=== PATIENT | male | born 1950 | race Caucasian/White ===

== ENCOUNTER 2017-03-23 06:22 | Inpatient (IN) | payer OTHER ==
[~2017-03-23] VITALS: Ht 185.4 cm; Wt 109.2 kg
[~2017-03-23 06:22] MED LIST: AMOX TR-K CLV1 EAC4 PO; CEFTIN500 MG PO; COUMADIN5 MG PO; GABAPENTIN300 MG PO; GLUCOPHAGE1000 MG PO; LIPITOR10 MG PO; LOVENOX100 MG/1 M SC; METOPROLOL SUC100 MG PO; MICARDIS HCT1 TABLE2 PO; TRAMADOL HCL50 MG PO; TRICOR145 MG PO; VALACYCLOVIR500 MG PO; WARFARIN SODIUM5 MG PO
[2017-03-23 06:55] LABS: POINT-OF-CARE METER ID UU13113702
[2017-03-23 07:40] LABS: BASOPHIL COUNT 0.1 K/uL (0-0.1); EOSINOPHIL (%) 0.8 % (0-5); EOSINOPHIL COUNT 0.1 K/uL (0-0.3); HEMATOCRIT 41.6 % (38.0-50.0); IMMATURE GRANULOCYTE (%) 1.1 % (0.0-0.7); IMMATURE GRANULOCYTE COUNT 0.2 K/uL; INSTRUMENT ABS NEUTROPHIL CT 10.4 K/uL; LYMPHOCYTE COUNT 1.7 K/uL (1.0-2.8); MCH 28.5 PG (29.0-34.0); MCHC 34.4 G/DL (30.0-36.0); MCV 82.9 FL (86-99); MEAN PLAT.VOLUME 10.3 uM^3 (9.0-12.4); MONOCYTE (%) 6.9 % (3-12); MONOCYTE COUNT 0.9 K/uL (0-0.8); NEUTROPHIL (%) 78.3 % (45-76); NEUTROPHIL COUNT 10.4 K/uL (1.8-6.4); PLATELET COUNT 257 K/uL (156-360); RED BLOOD COUNT 5.02 M/uL (4.00-5.50); WHITE BLOOD COUNT 13.3 K/uL (4.1-10.2)
[2017-03-23 08:03] LABS: INTER. NORMALIZED RATIO 3.9; PROTHROMBIN TIME 41.1 (9.2-11.2)
[2017-03-23 08:54] LABS: CHLORIDE 110 mEq/L (99-109); POTASSIUM 3.9 mEq/L (3.7-5.4); SODIUM 139 mEq/L (136-147)
[2017-03-23 08:56] LABS: GLUCOSE 115 mg/dL (70-99)
[2017-03-23 08:57] LABS: ANION GAP 10 MEQ/L (2-14)
[2017-03-23 09:00] LABS: GFR ESTIMATE (CALCULATED) > 59 mL/min/
[2017-03-23 09:01] LABS: UREA NITROGEN (BUN) 13 mg/dL (9-23)
[2017-03-23 11:57] LABS: ADD MIUA? NO; BILIRUBIN NEGATIVE; BLOOD NEGATIVE; COLOR STRAW ((YELLOW)); GLUCOSE (STRIP) NEGATIVE; KETONES NEGATIVE; LEUKOCYTES NEGATIVE; NITRITE NEGATIVE; PROTEIN (STRIP) NEGATIVE; SPECIFIC GRAVITY 1.026 (1.000-1.030); UCUL ADDED? NO; UROBILINOGEN 0.2 MG/DL (0.2-1.0)
[2017-03-23] MEDS ORDERED: DEXILANT60 MG PO (12:37)
[2017-03-23] MEDS ORDERED: COZAAR100 MG PO (12:37)
[2017-03-23] MEDS ORDERED: JENTADUETO 2.51 EAC2 PO (12:38)
[2017-03-23 13:30] LABS: TROP-I INTERPRETATION NEGATIVE; TROPONIN-I < 0.01 ng/mL (0.0-0.30)
[2017-03-23 17:39] VITALS: BP 161/85
[2017-03-23 19:27] LABS: TROP-I INTERPRETATION NEGATIVE; TROPONIN-I < 0.01 ng/mL (0.0-0.30)
[2017-03-23 20:00] VITALS: BP 173/93
[2017-03-23 23:43] VITALS: BP 118/63
[2017-03-24 01:11] LABS: TROP-I INTERPRETATION NEGATIVE; TROPONIN-I < 0.01 ng/mL (0.0-0.30)
[2017-03-24 07:21] LABS: HEMATOCRIT 37.4 % (38.0-50.0); MCH 28.7 PG (29.0-34.0); MCHC 34.2 G/DL (30.0-36.0); MCV 83.9 FL (86-99); MEAN PLAT.VOLUME 10.5 uM^3 (9.0-12.4); PLATELET COUNT 234 K/uL (156-360); RBC DIS.WIDTH-CV 13.2 % (11.8-14.6); RBC DIS.WIDTH-SD 40.4 % (39-53); RED BLOOD COUNT 4.46 M/uL (4.00-5.50); WHITE BLOOD COUNT 7.1 K/uL (4.1-10.2)
[2017-03-24 07:36] LABS: INTER. NORMALIZED RATIO 3.6; PROTHROMBIN TIME 37.9 (9.2-11.2)
[2017-03-24 07:38] VITALS: BP 164/91
[2017-03-24 07:45] LABS: ANION GAP 5 MEQ/L (2-14); CHLORIDE 105 MEQ/L (99-109); GFR ESTIMATE (CALCULATED) > 59 mL/min/; GLUCOSE 134 mg/dL (70-99); SAMPLE HEMOLYSIS CHECK 0; SAMPLE ICTERIC CHECK 0; SAMPLE LIPEMIA CHECK 0; SODIUM 136 MEQ/L (136-147); UREA NITROGEN (BUN) 11 mg/dL (9-23)
[2017-03-24 23:43] VITALS: BP 137/71
[2017-03-25 06:34] LABS: HEMATOCRIT 38.9 % (38.0-50.0); MCH 29.7 PG (29.0-34.0); MCV 82.4 FL (86-99); MEAN PLAT.VOLUME 10.2 uM^3 (9.0-12.4); PLATELET COUNT 246 K/uL (156-360); RBC DIS.WIDTH-CV 12.8 % (11.8-14.6); RBC DIS.WIDTH-SD 38.7 % (39-53); RED BLOOD COUNT 4.72 M/uL (4.00-5.50); WHITE BLOOD COUNT 8.8 K/uL (4.1-10.2)
[2017-03-25 07:02] LABS: ANION GAP 9 MEQ/L (2-14); CHLORIDE 96 MEQ/L (99-109); GFR ESTIMATE (CALCULATED) > 59 mL/min/; GLUCOSE 129 mg/dL (70-99); POTASSIUM 3.5 MEQ/L (3.7-5.4); SAMPLE HEMOLYSIS CHECK 0; SAMPLE ICTERIC CHECK 0; SAMPLE LIPEMIA CHECK 0; SODIUM 133 MEQ/L (136-147); UREA NITROGEN (BUN) 8 mg/dL (9-23)
[2017-03-25 07:08] LABS: INTER. NORMALIZED RATIO 2.4
[2017-03-25 07:17] LABS: PROTHROMBIN TIME 25.3 (9.2-11.2)
[2017-03-25 08:15] VITALS: BP 155/87
[2017-03-25] MEDS ORDERED: ENDOCET 5-3251 EACH PO (11:41)
[2017-03-25] MEDS ORDERED: TIZANIDINE HCL2 MG PO (11:41)
[2017-03-25 16:14] VITALS: BP 142/74
== END 2017-03-25 17:48 | disposition home health service (06) | DRG 552 ==
LOC: EME → TRA 06:22 → EME 06:22 → EDBD 06:22 → 3EAST 12:19 → EDOF 12:19 → 3EAST 16:54
PROVIDERS: Emergency Medicine; Internal Medicine
DX: S32.018A Other fracture of first lumbar vertebra, initial encounter for closed fracture (principal); G89.11 Acute pain due to trauma; T45.515A Adverse effect of anticoagulants, initial encounter; D68.32 Hemorrhagic disorder due to extrinsic circulating anticoagulants; E11.9 Type 2 diabetes mellitus without complications; S00.01XA Abrasion of scalp, initial encounter; I48.91 Unspecified atrial fibrillation; I10 Essential (primary) hypertension; E78.5 Hyperlipidemia, unspecified; Z90.49 Acquired absence of other specified parts of digestive tract; Z85.038 Personal history of other malignant neoplasm of large intestine; Z79.01 Long term (current) use of anticoagulants; Z87.891 Personal history of nicotine dependence; G89.29 Other chronic pain; E66.9 Obesity, unspecified; Z68.31 Body mass index [BMI] 31.0-31.9, adult; V58.5XXA Driver of pick-up truck or van injured in noncollision transport accident in traffic accident, initial encounter
CPT/HCPCS: 70450; 71260; 72125; 72128; 72129; 72131; 72132; 73030; 74177; 80048; 81003; 82948; 84484; 85025; 85027; 85610; 93005; 99281; 99285; G0378; G8978 GP CK; G8979 CJ; G8987 GO CN; G8988 GO CJ; J1170; J1885; J2270; J3010; J7030; S0028

== ENCOUNTER 2017-09-07 11:13 | Emergency (ER) | payer OTHER ==
[~2017-09-07] VITALS: Ht 182.9 cm; Wt 100.5 kg
[~2017-09-07 11:13] MED LIST changes: +COZAAR100 MG PO; +DEXILANT60 MG PO; +ENDOCET 5-3251 EACH PO; +JENTADUETO 2.51 EAC2 PO; +TIZANIDINE HCL2 MG PO
[2017-09-07 12:44] LABS: HEMATOCRIT 42.2 % (38.0-50.0); HEMOGLOBIN 14.8 G/DL (12.5-16.6); MCH 28.9 PG (29.0-34.0); MCHC 35.1 G/DL (30.0-36.0); MCV 82.4 FL (86-99); PLATELET COUNT 243 K/uL (156-360); RBC DIS.WIDTH-CV 13.2 % (11.8-14.6); RBC DIS.WIDTH-SD 39.7 % (39-53); RED BLOOD COUNT 5.12 M/uL (4.00-5.50); WHITE BLOOD COUNT 9.1 K/uL (4.1-10.2)
[2017-09-07 13:13] LABS: CHLORIDE 96 mEq/L (99-109); POTASSIUM 3.4 mEq/L (3.7-5.4); SODIUM 132 mEq/L (136-147)
[2017-09-07 13:14] LABS: GLUCOSE 133 mg/dL (70-99)
[2017-09-07 13:18] LABS: CREATININE 1.7 mg/dL (0.6-1.3); GFR ESTIMATE (CALCULATED) 43 mL/min/ (58.99-99999)
[2017-09-07 13:19] LABS: UREA NITROGEN (BUN) 23 mg/dL (9-23)
[2017-09-07 14:29] LABS: APPEARANCE SL.HAZY ((CLEAR)); BILIRUBIN NEGATIVE; BLOOD NEGATIVE; COLOR AMBER ((YELLOW)); GLUCOSE (STRIP) NEGATIVE; KETONES NEGATIVE; LEUKOCYTES NEGATIVE; NITRITE NEGATIVE; PROTEIN (STRIP) 30; SPECIFIC GRAVITY 1.024 (1.000-1.030)
[2017-09-07 14:38] LABS: BACTERIA RARE /HPF; EPITHELIAL CELLS RARE /HPF; HYALINE CASTS 20-30 /LPF; MUCUS TRACE /LPF; RED BLOOD CELLS 0-5 /HPF (0-5); UCUL ADDED? YES; URIC ACID CRYSTALS 2+ /HPF
[2017-09-07 15:19] LABS: PHENCYCLIDINE NEGATIVE (25 ng/mL); THC CANNABINOIDS NEGATIVE (50 ng/mL)
[2017-09-07 15:20] LABS: AMPHETAMINE NEGATIVE (500 ng/mL); BARBITURATES NEGATIVE (200 ng/mL); BENZODIAZEPINES NEGATIVE (150 ng/mL); BUPRENORPHINE NEGATIVE (10 ng/mL); COCAINE NEGATIVE (150 ng/mL); METHADONE NEGATIVE (200 ng/mL); METHAMPHETAMINE NEGATIVE (500 ng/mL); OPIATES (MORPHINE) NEGATIVE (100 ng/mL); OXYCODONE NEGATIVE (100 ng/mL); PROPOXYPHENE NEGATIVE (300 ng/mL); TRICYCLIC ANTIDEPRESSANTS NEGATIVE (300 ng/mL)
[2017-09-07 17:57] VITALS: BP 123/71
== END 2017-09-07 17:57 | disposition home or self-care (01) ==
LOC: EME 11:13
PROVIDERS: Nurse Practitioner Family
DX: J10.1 Influenza due to other identified influenza virus with other respiratory manifestations (principal); J06.9 Acute upper respiratory infection, unspecified; R41.0 Disorientation, unspecified; J45.909 Unspecified asthma, uncomplicated; E78.5 Hyperlipidemia, unspecified; E11.9 Type 2 diabetes mellitus without complications; I10 Essential (primary) hypertension; I48.91 Unspecified atrial fibrillation; Z79.01 Long term (current) use of anticoagulants; Z79.84 Long term (current) use of oral hypoglycemic drugs; Z87.891 Personal history of nicotine dependence; Z85.9 Personal history of malignant neoplasm, unspecified; Z88.8 Allergy status to other drugs, medicaments and biological substances
CPT/HCPCS: 70450; 71020; 80048; 81003; 85027; 87086; 87502; 93005; 99281; 99285; J7030